=== PATIENT | female | born 1960 | race Caucasian/White ===

== ENCOUNTER 2023-12-06 07:28 | Day surgery (SDC) | payer OTHER ==
[~2023-12-06] VITALS: Ht 152.4 cm; Wt 89.4 kg
[2023-12-06] MEDS ORDERED: MIDAZOLAM HCL 5 MG/5 ML VIAL ONE (07:33)
[2023-12-06] MEDS ORDERED: MEPERIDINE 100 MG INJ. 100 MG/ML VIAL ONE (07:33)
[2023-12-06 08:30] VITALS: O2SAT 97
[2023-12-06 13:18] VITALS: BP_SYST 114; PULSE 65; RESP 15
== END 2023-12-06 09:44 | disposition home or self-care (01) ==
LOC: SDS 07:28 → SMU 07:30 → SDS 09:44
PROVIDERS: ATTEND Internal Medicine Gastroenterology
DX: Z12.11 Encounter for screening for malignant neoplasm of colon (principal); D12.3 Benign neoplasm of transverse colon; K64.8 Other hemorrhoids; E78.5 Hyperlipidemia, unspecified; Z90.89 Acquired absence of other organs; Z86.010 Personal history of colon polyps; Z80.0 Family history of malignant neoplasm of digestive organs
CPT/HCPCS: 45385; 99152; 88305; 99153; G0378; J2250; J2175